=== PATIENT | male | born 1955 | race Asian ===

== ENCOUNTER 2022-01-25 05:23 | Inpatient (IN) | payer MEDICARE, MEDICAID ==
[~2022-01-25] VITALS: Ht 165.1 cm; Wt 83.0 kg
[2022-01-25] VITALS (17 sets, daily range): BP systolic 88–114; BP diastolic 41–65
[2022-01-25] MEDS ORDERED: LACTATED RINGERS 1,000 ML IV SCH (06:10)
[2022-01-25] MEDS ORDERED: THROMBIN (BOVINE) 5000 UNITS/VIAL TOP ONE (06:27)
[2022-01-25] MEDS ORDERED: LIDOCAINE HCL/EPINEPHRINE 1%-EPI 1:100,000 20 ML VIAL ONE (06:27)
[2022-01-25] MEDS ORDERED: GENTAMICIN SULF 40MG/ML 2ML VIAL ONE (06:27)
[2022-01-25] MEDS ORDERED: ROCURONIUM BROMIDE 10MG/ML VIAL 5ML IV ONE ×2 (07:17→07:59)
[2022-01-25] MEDS ORDERED: HYDROMORPHONE HCL/PF 2MG/ML CPJ ONE (07:30)
[2022-01-25] MEDS ORDERED: GLYCOPYRROLATE 0.2 MG/ML 2ML VIAL ONE ×3 (07:57→09:30)
[2022-01-25] MEDS ORDERED: ALBUMIN HUMAN 25GM/100ML (25%) IV ONE (08:09)
[2022-01-25] MEDS ORDERED: METOPROLOL TARTRATE 5MG/5ML VIAL IV ONE (09:10)
[2022-01-25] MEDS ORDERED: EPHEDRINE SULFATE 50MG/ML VIAL ONE (09:10)
[2022-01-25] MEDS ORDERED: HYDRALAZINE 20MG/ML VIAL ONE (09:10)
[2022-01-25] MEDS ORDERED: DEXAMETHASONE 4MG/ML 1ML VIAL ONE (09:10)
[2022-01-25] MEDS ORDERED: CEFAZOLIN SODIUM 1000MG/VIAL ONE (09:10)
[2022-01-25] MEDS ORDERED: NEOSTIGMINE METHYLSULFATE 1MG/ML 10 ML VIAL ONE (09:29)
[2022-01-25] MEDS ORDERED: NICARDIPINE 100 MG in SODIUM CHLORIDE 0.9% 60 ML IV PRN (09:30)
[2022-01-25] MEDS ORDERED: HYDROCODONE/ACETAMINOPHEN 5/325MG TABLET PO PRN (09:30)
[2022-01-25] MEDS ORDERED: MORPHINE SULFATE 4 MG/ML CPJ (NOT FOR IM USE) IV PRN (09:30)
[2022-01-25] MEDS: DEXT 5%/LACTATED RINGERS 1,000 ML IV SCH ×3 (09:30→21:08)
[2022-01-25] MEDS ORDERED: LABETALOL 5MG/ML SYR 20 MG/4 ML SYRINGE IV PRN (10:00)
[2022-01-25] MEDS ORDERED: ONDANSETRON HCL 4MG/2ML INJ IV PRN (10:00)
[2022-01-25] MEDS ORDERED: MEPERIDINE HCL/PF 25MG/ML CPJ IV PRN (10:00)
[2022-01-25] MEDS: HYDROMORPHONE HCL/PF 2MG/ML CPJ IV PRN ×5 (10:05→13:53)
[2022-01-25] MEDS ORDERED: ONDANSETRON INJ IV PRN (11:15)
[2022-01-25] MEDS ORDERED: DIPHENHYDRAMINE INJ IV PRN (11:15)
[2022-01-25] MEDS ORDERED: NALOXONE INJ IV PRN (11:15)
[2022-01-25] MEDS ORDERED: HYDROMORPHONE PCA 10MG/50ML IV PRN (11:15)
[2022-01-25] MEDS: DEXAMETHASONE 4MG/ML 1ML VIAL IV SCH ×3 (12:21→23:45)
[2022-01-25] MEDS ORDERED: IPRATROPIUM/ALBUTEROL 0.5-3(2.5)MG/3ML NEB HHN PRN (16:00)
[2022-01-26] VITALS (57 sets, daily range): BP systolic 97–142; BP diastolic 46–80
[2022-01-26] MEDS: DEXAMETHASONE 4MG/ML 1ML VIAL IV SCH ×3 (05:46→17:49)
[2022-01-26] MEDS ORDERED: GABA-290 MT (07:30)
[2022-01-26] MEDS: DEXT 5%/LACTATED RINGERS 1,000 ML IV SCH ×3 (08:05→17:51)
[2022-01-26 09:59] LABS: HEMATOCRIT. 38.1 % (42.0-52.0); HEMOGLOBIN. 12.7 g/dL (14.0-18.0); MEAN CORPUSCULAR HEMOGLOBIN 29.5 pg (28.0-32.0); MEAN CORPUSCULAR VOLUME 88.4 fL (80.0-94.0); MEAN PLATELET VOLUME 7.4 fl (7.4-10.4); PLATELET 208 x1000/uL (130-400); RED BLOOD CELL COUNT 4.31 mill/uL (4.7-6.1); RED CELL DISTRIBUTION WIDTH 13.2 % (11.6-14.6)
[2022-01-26 10:00] LABS: CHLORIDE 104 mEq/L (98-107)
[2022-01-26 17:23] LABS: PLATELET ESTIMATE NORMAL
[2022-01-27] VITALS: BP 141/64
[2022-01-27] MEDS: DEXAMETHASONE 4MG/ML 1ML VIAL IV SCH ×3 (00:59→12:21)
[2022-01-27 04:00] VITALS: BP 138/70
[2022-01-27] MEDS: DEXT 5%/LACTATED RINGERS 1,000 ML IV SCH (09:50)
[2022-01-27 12:04] VITALS: BP 128/64
[2022-01-27 15:49] VITALS: BP 128/74
[2022-01-27 20:00] VITALS: BP 127/76
[2022-01-28] VITALS: BP 128/68
[2022-01-28 04:00] VITALS: BP 121/67
[2022-01-28 07:09] LABS: CHLORIDE 101 mEq/L (98-107)
[2022-01-28 07:23] LABS: BASOPHILS % 0.1 % (0.0-2.0); EOSINOPHILS % 0.1 % (0.0-5.0); HEMATOCRIT. 38.6 % (42.0-52.0); HEMOGLOBIN. 12.9 g/dL (14.0-18.0); LYMPHOCYTES % 15.1 % (20.0-50.0); MEAN CORPUSCULAR HEMOGLOBIN 29.3 pg (28.0-32.0); MEAN CORPUSCULAR VOLUME 87.7 fL (80.0-94.0); MEAN PLATELET VOLUME 7.6 fl (7.4-10.4); MONOCYTES % 13.1 % (2.0-8.0); NEUTROPHILS % 71.6 % (40.0-76.0); PLATELET 214 x1000/uL (130-400); RED CELL DISTRIBUTION WIDTH 12.9 % (11.6-14.6)
[2022-01-28 08:00] VITALS: BP 137/82
[2022-01-28 12:00] VITALS: BP 121/78
[2022-01-28 16:00] VITALS: BP 127/87
[2022-01-28] MEDS: GUAIFENESIN 600MG ER TABLET PO SCH (16:18)
[2022-01-28 20:00] VITALS: BP 122/79
[2022-01-28] MEDS ORDERED: GUAIFENESIN 600MG ER TABLET PO SCH (21:00)
[2022-01-29] VITALS: BP 127/84
[2022-01-29 04:00] VITALS: BP 132/93
[2022-01-29] MEDS: GUAIFENESIN 600MG ER TABLET PO SCH ×2 (05:09→17:41)
[2022-01-29 08:00] VITALS: BP 121/71
[2022-01-29] MEDS: PANTOPRAZOLE 40MG DR TABLET PO SCH (09:53)
[2022-01-29] MEDS: DEXAMETHASONE 4MG/ML 1ML VIAL IV SCH ×2 (09:54→17:41)
[2022-01-29 16:00] VITALS: BP 103/70
[2022-01-29 20:00] VITALS: BP 124/63
[2022-01-30] VITALS: BP 119/69
[2022-01-30] MEDS: DEXAMETHASONE 4MG/ML 1ML VIAL IV SCH ×4 (01:11→18:10)
[2022-01-30 04:00] VITALS: BP_SYST 116; BP_SYST 119; BP_DIAS 66; BP_DIAS 73
[2022-01-30] MEDS: GUAIFENESIN 600MG ER TABLET PO SCH ×2 (05:03→18:10)
[2022-01-30] MEDS: PANTOPRAZOLE 40MG DR TABLET PO SCH (05:03)
[2022-01-30 08:00] VITALS: BP 127/80
[2022-01-30 12:00] VITALS: BP 107/64
[2022-01-30 16:00] VITALS: BP 129/69
[2022-01-30 20:00] VITALS: BP 124/69
[2022-01-31] VITALS (7 sets, daily range): BP systolic 119–131; BP diastolic 68–71
[2022-01-31] MEDS: DEXAMETHASONE 4MG/ML 1ML VIAL IV SCH ×2 (01:05→06:18)
[2022-01-31] MEDS: GUAIFENESIN 600MG ER TABLET PO SCH ×2 (06:18→17:23)
[2022-01-31] MEDS: PANTOPRAZOLE 40MG DR TABLET PO SCH (06:23)
[2022-01-31] MEDS ORDERED: DEXAMETHASONE 4MG/ML 1ML VIAL IV SCH (12:00)
[2022-02-01] MEDS ORDERED: FAMOTIDINE 20MG TABLET PO SCH (07:10)
== END 2022-01-31 22:15 | DRG 471 ==
LOC: OR 05:23 → EDSTATUS 07:00 → MICUNO 19:47 → 8WST 01-27 00:11
PROVIDERS: ADMIT Neurological Surgery; ATTEND Neurological Surgery
PROC: 0RG2071 Fusion of 2 or more Cervical Vertebral Joints with Autologous Tissue Substitute, Posterior Approach, Posterior Column, Open Approach (ICD-10-PCS; principal; 2022-01-25)
PROC: 00NW0ZZ Release Cervical Spinal Cord, Open Approach (ICD-10-PCS; 2022-01-25)
PROC: 4A11X4G Monitoring of Peripheral Nervous Electrical Activity, Intraoperative, External Approach (ICD-10-PCS; 2022-01-25)
DX: M48.02 Spinal stenosis, cervical region (principal); G82.50 Quadriplegia, unspecified; S14.123A Central cord syndrome at C3 level of cervical spinal cord, initial encounter; M47.12 Other spondylosis with myelopathy, cervical region; J44.9 Chronic obstructive pulmonary disease, unspecified; M19.90 Unspecified osteoarthritis, unspecified site; Z20.822 Contact with and (suspected) exposure to COVID-19; D72.829 Elevated white blood cell count, unspecified; R13.10 Dysphagia, unspecified; R26.89 Other abnormalities of gait and mobility; G89.29 Other chronic pain; Z82.49 Family history of ischemic heart disease and other diseases of the circulatory system; Z87.891 Personal history of nicotine dependence; Z99.3 Dependence on wheelchair; X58.XXXA Exposure to other specified factors, initial encounter; Y93.89 Activity, other specified; Y92.89 Other specified places as the place of occurrence of the external cause; Y99.8 Other external cause status
CPT/HCPCS: 36415; 72040; 72141; 76000; 80048; 85025; 86850; 86900; 87426; 88311; 97110; 97162; 97166; 97530; C1713; J0360; J0690; J1100; J1170; J1580; J2710; J3490; J7050; J7121; L0172; P9047